=== PATIENT | female | born 1970 | race Caucasian/White ===

== ENCOUNTER 2021-11-15 14:13 | Emergency (ER) | payer OTHER ==
[2021-11-15 18:02] LABS: BASOPHIL 0.8 % (0-2); HCT 52.5 % (37.0-47.0); HGB 17.2 g/dl (12.5-16.0); LYMPHOCYTE 31.8 % (15-48); MCH 30.7 pg (25.0-31.0); MCHC 32.8 g/dL (32.0-36.0); MCV 93.8 fL (78.0-100.0); MPV 9.3 fL (6.0-9.5); NEUTROPHIL 60.2 % (41-80); NRBC 0; PLT 263 K/uL (150-400); RDW 12.9 % (11.5-14.0); WBC 9.1 K/uL (4.0-10.5)
[2021-11-15 18:28] LABS: ALBUMIN 4.2 g/dL (3.4-5.0); BILIRUBIN - TOTAL 0.7 mg/dL (0.2-1.0); BUN/CREAT RATIO (CALC) 12.8 RATIO; CREATININE 0.78 mg/dL (0.51-0.95); GLOBULIN (CALCULATION) 3.3 g/dL; INR 0.89 (0.9-1.2); POTASSIUM 4.2 mmol/L (3.5-5.1); PROTHROMBIN TIME 11.5 SECONDS (11.8-13.4); PTT 32.3 SECONDS (24.4-34.7); TOTAL PROTEIN 7.5 g/dL (6.4-8.2)
== END 2021-11-15 21:40 | disposition home or self-care (01) ==
LOC: FER 14:13
PROVIDERS: Internal Medicine
DX: R07.89 Other chest pain (principal); F41.9 Anxiety disorder, unspecified; J44.9 Chronic obstructive pulmonary disease, unspecified; F17.210 Nicotine dependence, cigarettes, uncomplicated; Z88.1 Allergy status to other antibiotic agents
CPT/HCPCS: 36415; 71045; 80053; 84484; 85025; 85610; 85730; 93005